=== PATIENT | female | born 1930 | race Caucasian/White ===

== ENCOUNTER 2018-11-24 12:05 | Inpatient (IN) | payer MEDICARE, BC ==
[2018-11-24] MEDS ORDERED: oxyCODONE 5 MG Tab PO PRN (14:43)
--- NOTE | 2018-11-24 14:46 | PCM.HP.2 ---
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 She is admitted to swing bed for rehabilitation. Pain is well controlled on oxycodone,but she complains of some constipation. Taylor also has a history of Hypothyroidism hypertension, depression,and PMR that is stable. She had postoperative anemia but at discharge her hemoglobin 9.7. left hip Pain Score (Numeric/FACES): 7 - Related Data Allergies/Adverse Reactions: Allergies Allergy/AdvReac Type Severity Reaction Status Date / Time morphine Allergy Rash Verified 01/14/16 03:36 Home Medications: Home Meds Lisinopril/Hydrochlorothiazide [Lisinopril-Hctz 20-12.5 mg Tab] 2 tab PO DAILY 12/09/14 [History] Docusate Sodium [Doc-Q-Lace] 100 mg PO DAILY 09/08/15 [History] Folic Acid 1 mg PO DAILY 09/08/15 [History] Sertraline [Zoloft] 25 mg PO DAILY 09/08/15 [History] predniSONE [Prednisone] 5 mg PO DAILY 09/08/15 [History] Acetaminophen [Tylenol Extra Strength] 1,000 mg PO TID 11/24/18 [History] Apixaban [Eliquis] 2.5 mg PO BID 11/24/18 [History] Aspirin [Halfprin] 81 mg PO DAILY 11/24/18 [History] Ferrous Sulfate 325 mg PO DAILY 11/24/18 [History] Sennosides/Docusate Sodium [Senna-S] 2 tab PO BID 11/24/18 [History] oxyCODONE 5 mg PO Q6H PRN 11/24/18 [History] traMADol [Ultram] 50 mg PO TID 11/24/18 [History] Past Medical History HEENT History: Reports: Impaired Vision, Sinusitis Other HEENT History: No vision out of left eye, sees light only, since 20 years ago. Cardiovascular History: Reports: Blood Clots/VTE/DVT, High Cholesterol, Hypertension Other Cardiovascular History: blood clot in right arm Respiratory History: Reports: Other (See Below) Other Respiratory History: Current bronchitis Gastrointestinal History: Reports: Bowel Obstruction, Hemorrhoids [employer] History: Reports: Musculoskeletal History: Reports: Arthritis Other Musculoskeletal History: ARTHRITIS Oncologic (Cancer) History: Reports: Colon - Infectious Disease History Infectious Disease History: Reports: Chicken Pox, Measles, Mumps - Past Surgical History GI Surgical History: Reports: Cholecystectomy, Colon, Small Bowel Social & Family History - Family History Family Medical History: Noncontributory HEENT: Reports: None Other Cardiac Family History: dad had heart problems GI: Reports: Bowel Obstruction OBGYN: Reports: Endocrine/Metabolic: Reports: Diabetes, type II - Caffeine Use Caffeine Use: Reports: None - Living Situation & Occupation Living situation: Reports: , Alone, Other Occupation: Retired H&P Review of Systems - Review of Systems: Review Of Systems: ROS reveals no pertinent complaints other than HPI. Exam - Exam Exam: See Below - Exam General: Alert, Oriented HEENT: PERRLA Neck: Supple Lungs: Clear to Auscultation Cardiovascular: Regular Rate Rectal (Female) Exam: Deferred Extremities: Normal Inspection Skin: Warm, Dry Neurological: Cranial Nerves Intact Neuro Extensive - Motor, Sensory, Reflexes: CN II-XII Intact Psychiatric: Alert, Normal Affect - Problem List (1) H/O total hip arthroplasty SNOMED Code(s): 701204123414, 632501052847 ICD Code: Z96.649 - PRESENCE OF UNSPECIFIED ARTIFICIAL HIP JOINT Status: Acute Current Visit: Yes Qualifiers: Laterality: left Qualified Code(s): Z96.642 - Presence of left artificial hip joint (2) Weakness SNOMED Code(s): 83423397 ICD Code: R53.1 - WEAKNESS Status: Acute Current Visit: Yes (3) MDD (major depressive disorder) SNOMED Code(s): 070778365 ICD Code: F32.9 - MAJOR DEPRESSIVE DISORDER, SINGLE EPISODE, UNSPECIFIED Status: Acute Current Visit: Yes Qualifiers: Major depression recurrence: recurrent (4) Anemia SNOMED Code(s): 906833802 ICD Code: D64.9 - ANEMIA, UNSPECIFIED Status: Acute Current Visit: Yes Qualifiers: Anemia type: unspecified type Qualified Code(s): D64.9 - Anemia, unspecified (5) CKD (chronic kidney disease) SNOMED Code(s): 768157492 ICD Code: N18.9 - CHRONIC KIDNEY DISEASE, UNSPECIFIED Status: Chronic Current Visit: Yes Qualifiers: Chronic kidney disease stage: stage 3 (moderate) Qualified Code(s): N18.3 - Chronic kidney disease, stage 3 (moderate) (6) HTN (hypertension) SNOMED Code(s): 11844561 ICD Code: I10 - ESSENTIAL (PRIMARY) HYPERTENSION Status: Chronic Current Visit: Yes Qualifiers: Hypertension type: essential hypertension Qualified Code(s): I10 - Essential (primary) hypertension (7) PMR (polymyalgia rheumatica) SNOMED Code(s): 28953781 ICD Code: M35.3 - POLYMYALGIA RHEUMATICA Status: Chronic Current Visit: Yes Problem List Initiated/Reviewed/Updated: Yes Orders Last 24hrs: Active Orders 24 hr Category Date Time Status Admission Status [Patient Status] [ADT] Routine ADT 11/24/18 14:15 Active Height and Weight [RC] WEEKLY Care 11/24/18 14:41 Ordered Oxygen Therapy [RC] PRN Care 11/24/18 14:41 Ordered VTE/DVT Education [RC] Per Unit Routine Care 11/24/18 14:41 Ordered Vital Signs [RC] PER UNIT ROUTINE Care 11/24/18 14:41 Ordered Consult to Occupational Therapy [OT Evaluation and Cons 11/24/18 14:40 Active Treatment] [CONS] Routine PT Evaluation and Treatment [CONS] Routine Cons 11/24/18 14:40 Active Regular Diet [DIET] Diet 11/24/18 Breakfast Ordered Acetaminophen [Tylenol Extra Strength] Med 11/24/18 21:00 Ordered 1,000 mg PO TID Apixaban [Eliquis] Med 11/24/18 21:00 Ordered 2.5 mg PO BID Docusate Sodium [Colace] Med 11/25/18 09:00 Ordered 100 mg PO DAILY Docusate Sodium/Sennosides [Senna Plus] Med 11/24/18 21:00 Ordered 2 tab PO BID Ferrous Sulfate Med 11/25/18 09:00 Ordered 325 mg PO DAILY Folic Acid Med 11/25/18 09:00 Ordered 1 mg PO DAILY Hydrochlorothiazide/Lisinopril [Lisinopril/HCTZ 20-12.5 Med 11/25/18 09:00 Ordered MG] 2 tab PO DAILY Sertraline [Zoloft] Med 11/25/18 09:00 Ordered 25 mg PO DAILY oxyCODONE Med 11/24/18 14:43 Ordered 5 mg PO Q6H PRN predniSONE Med 11/25/18 09:00 Ordered 5 mg PO DAILY traMADol [Ultram] Med 11/24/18 21:00 Ordered 50 mg PO TID Resuscitation Status Routine Resus Stat 11/24/18 14:41 Ordered Assessment/Plan Comment:: Admit to swing bed,with routine order set. Try Miralax for constipation. Consult OT/PT. - Mortality Measure Prognosis:: Good
[2018-11-24] MEDS: traMADol 50 MG Tab PO SCH ×2 (15:34→21:28)
[2018-11-24] MEDS: Acetaminophen 500 MG Tab PO SCH ×2 (15:34→21:23)
[2018-11-24] MEDS: Apixaban 5 MG Tab PO SCH (21:22)
[2018-11-25] MEDS: traMADol 50 MG Tab PO SCH ×3 (07:52→22:36)
[2018-11-25] MEDS ORDERED: Polyethylene Glycol 3350 Powder 17 GM Packet PO ONE (08:42)
[2018-11-25] MEDS: Docusate Sodium 100 MG Cap PO SCH (09:55)
[2018-11-25] MEDS: Apixaban 5 MG Tab PO SCH ×2 (09:56→20:22)
[2018-11-25] MEDS: Ferrous Sulfate 325 MG Tab PO SCH (09:57)
[2018-11-25] MEDS: Folic Acid 1 MG Tab PO SCH (09:57)
[2018-11-25] MEDS: predniSONE 5 MG Tab PO SCH (09:59)
[2018-11-25] MEDS: Acetaminophen 500 MG Tab PO SCH ×2 (10:01→18:32)
[2018-11-25] MEDS: Sertraline 25 MG Tab PO SCH (10:02)
[2018-11-25] MEDS: Hydrochlorothiazide/Lisinopril 12.5-20 MG Tab PO SCH (10:14)
[2018-11-26] MEDS: Acetaminophen 500 MG Tab PO SCH ×3 (00:25→18:05)
[2018-11-26] MEDS: traMADol 50 MG Tab PO SCH ×3 (05:49→21:38)
[2018-11-26] MEDS: Docusate Sodium 100 MG Cap PO SCH (08:05)
[2018-11-26] MEDS: Apixaban 5 MG Tab PO SCH ×2 (08:05→20:40)
[2018-11-26] MEDS: Folic Acid 1 MG Tab PO SCH (08:06)
[2018-11-26] MEDS: Ferrous Sulfate 325 MG Tab PO SCH (08:06)
[2018-11-26] MEDS: Hydrochlorothiazide/Lisinopril 12.5-20 MG Tab PO SCH (08:07)
[2018-11-26] MEDS: predniSONE 5 MG Tab PO SCH (08:07)
[2018-11-26] MEDS: Sertraline 25 MG Tab PO SCH (08:08)
[2018-11-26] MEDS ORDERED: Ondansetron 4 MG Tab.DIS PO PRN (13:12)
[2018-11-27] MEDS: Acetaminophen 500 MG Tab PO SCH ×4 (00:06→23:42)
[2018-11-27] MEDS: traMADol 50 MG Tab PO SCH ×3 (06:19→21:04)
[2018-11-27] MEDS: Apixaban 5 MG Tab PO SCH ×2 (09:07→20:50)
[2018-11-27] MEDS: Docusate Sodium 100 MG Cap PO SCH (09:07)
[2018-11-27] MEDS: predniSONE 5 MG Tab PO SCH (09:08)
[2018-11-27] MEDS: Ferrous Sulfate 325 MG Tab PO SCH (09:08)
[2018-11-27] MEDS: Folic Acid 1 MG Tab PO SCH (09:08)
[2018-11-27] MEDS: Sertraline 25 MG Tab PO SCH (09:09)
[2018-11-27] MEDS ORDERED: Polyethylene Glycol 3350 Powder 17 GM Packet PO PRN (09:11)
[2018-11-27] MEDS: Hydrochlorothiazide/Lisinopril 12.5-20 MG Tab PO SCH (09:13)
[2018-11-28] MEDS: traMADol 50 MG Tab PO SCH ×3 (05:56→22:45)
[2018-11-28] MEDS: Docusate Sodium 100 MG Cap PO SCH (08:38)
[2018-11-28] MEDS: Apixaban 5 MG Tab PO SCH ×2 (08:38→20:25)
[2018-11-28] MEDS: Ferrous Sulfate 325 MG Tab PO SCH (08:38)
[2018-11-28] MEDS: Hydrochlorothiazide/Lisinopril 12.5-20 MG Tab PO SCH (08:38)
[2018-11-28] MEDS: Folic Acid 1 MG Tab PO SCH (08:38)
[2018-11-28] MEDS: Sertraline 25 MG Tab PO SCH (08:39)
[2018-11-28] MEDS: predniSONE 5 MG Tab PO SCH (08:39)
[2018-11-28] MEDS: Acetaminophen 500 MG Tab PO SCH ×2 (10:30→18:38)
[2018-11-29] MEDS: Acetaminophen 500 MG Tab PO SCH ×4 (00:06→23:52)
[2018-11-29] MEDS: traMADol 50 MG Tab PO SCH ×3 (05:40→22:00)
[2018-11-29] MEDS: predniSONE 5 MG Tab PO SCH (08:00)
[2018-11-29] MEDS: Docusate Sodium 100 MG Cap PO SCH (08:00)
[2018-11-29] MEDS: Hydrochlorothiazide/Lisinopril 12.5-20 MG Tab PO SCH (08:00)
[2018-11-29] MEDS: Folic Acid 1 MG Tab PO SCH (08:00)
[2018-11-29] MEDS: Sertraline 25 MG Tab PO SCH (08:00)
[2018-11-29] MEDS: Apixaban 5 MG Tab PO SCH ×2 (08:00→21:10)
[2018-11-29] MEDS: Ferrous Sulfate 325 MG Tab PO SCH (08:00)
[2018-11-30] MEDS: traMADol 50 MG Tab PO SCH ×3 (05:43→21:49)
[2018-11-30] MEDS: Hydrochlorothiazide/Lisinopril 12.5-20 MG Tab PO SCH (08:12)
[2018-11-30] MEDS: Sertraline 25 MG Tab PO SCH (08:12)
[2018-11-30] MEDS: predniSONE 5 MG Tab PO SCH (08:12)
[2018-11-30] MEDS: Folic Acid 1 MG Tab PO SCH (08:13)
[2018-11-30] MEDS: Docusate Sodium 100 MG Cap PO SCH (08:13)
[2018-11-30] MEDS: Ferrous Sulfate 325 MG Tab PO SCH (08:13)
[2018-11-30] MEDS: Apixaban 5 MG Tab PO SCH ×2 (08:13→20:25)
[2018-11-30] MEDS: Acetaminophen 500 MG Tab PO SCH ×2 (10:14→18:26)
[2018-11-30] MEDS ORDERED: Menthol/Methyl Salicylate 114 GM Jar TOP PRN (11:24)
[2018-12-01] MEDS: Acetaminophen 500 MG Tab PO SCH ×4 (00:22→23:25)
[2018-12-01] MEDS: traMADol 50 MG Tab PO SCH (05:13)
[2018-12-01] MEDS: Sertraline 25 MG Tab PO SCH (08:47)
[2018-12-01] MEDS: predniSONE 5 MG Tab PO SCH (08:47)
[2018-12-01] MEDS: Hydrochlorothiazide/Lisinopril 12.5-20 MG Tab PO SCH (08:47)
[2018-12-01] MEDS: Docusate Sodium 100 MG Cap PO SCH (08:47)
[2018-12-01] MEDS: Folic Acid 1 MG Tab PO SCH (08:48)
[2018-12-01] MEDS: Apixaban 5 MG Tab PO SCH ×2 (08:48→22:38)
[2018-12-01] MEDS: Ferrous Sulfate 325 MG Tab PO SCH (08:48)
[2018-12-02] MEDS: traMADol 50 MG Tab PO PRN ×4 (00:18→21:25)
[2018-12-02] MEDS: Hydrochlorothiazide/Lisinopril 12.5-20 MG Tab PO SCH (08:08)
[2018-12-02] MEDS: Ferrous Sulfate 325 MG Tab PO SCH (08:08)
[2018-12-02] MEDS: Apixaban 5 MG Tab PO SCH ×2 (08:08→21:17)
[2018-12-02] MEDS: predniSONE 5 MG Tab PO SCH (08:08)
[2018-12-02] MEDS: Folic Acid 1 MG Tab PO SCH (08:08)
[2018-12-02] MEDS: Sertraline 25 MG Tab PO SCH (08:08)
[2018-12-02] MEDS: Docusate Sodium 100 MG Cap PO SCH (08:08)
[2018-12-02] MEDS: Acetaminophen 500 MG Tab PO SCH ×2 (10:13→18:38)
[2018-12-03] MEDS: Acetaminophen 500 MG Tab PO SCH ×3 (01:02→17:00)
[2018-12-03] MEDS: predniSONE 5 MG Tab PO SCH (08:07)
[2018-12-03] MEDS: Apixaban 5 MG Tab PO SCH ×2 (08:07→20:54)
[2018-12-03] MEDS: Sertraline 25 MG Tab PO SCH (08:08)
[2018-12-03] MEDS: Ferrous Sulfate 325 MG Tab PO SCH (08:08)
[2018-12-03] MEDS: Docusate Sodium 100 MG Cap PO SCH (08:08)
[2018-12-03] MEDS: Hydrochlorothiazide/Lisinopril 12.5-20 MG Tab PO SCH (08:08)
[2018-12-03] MEDS: Folic Acid 1 MG Tab PO SCH (08:08)
[2018-12-03] MEDS: traMADol 50 MG Tab PO PRN (08:13)
[2018-12-03] MEDS: Diclofenac Sodium 1% Gel 100 GM Tube TOP SCH ×3 (14:08→20:54)
--- NOTE | 2018-12-03 17:37 | PCM.PN ---
- General Info Date of Service: 12/03/18 Admission Dx/Problem (Free Text): Patient is having more right shoulder pain secondary to using her shoulder more with front wheel walker. States she has babied the shoulder for years as her hip as been the biggest problem. She had AVN of left hip, required left ADRY. She has never had x-ray of the shoulder. Has appt with orthopedics/rheumatology in a few weeks. No cough, shortness of breath, nausea, vomiting. Had bowel movement this morning which is more loose. Was on aggressive bowel regiment in [place]. She take Colace daily at home. Care conference today at 1pm. - Patient Data Vitals - Most Recent: Last Vital Signs Temp 98.1 F 12/03/18 07:45 Pulse 68 12/03/18 07:45 Resp 18 12/03/18 07:45 BP 127/58 L 12/03/18 08:08 Pulse Ox 95 12/03/18 07:45 Weight - Most Recent: 170 lb 3.2 oz I&O - Last 24 Hours: Intake & Output 12/03/18 12/03/18 12/03/18 06:59 14:59 22:59 Intake Total 600 Balance 600 Med Orders - Current: Current Medications Acetaminophen (Tylenol Extra Strength) 1,000 mg PO TID@0000,1000,1800 [facility] Stop: 12/08/18 10:01 Last Admin: 12/03/18 17:00 Dose: 1,000 mg Acetaminophen (Tylenol Extra Strength) 1,000 mg PO TID@0000,1000,1800 PRN PRN Reason: PAIN Apixaban (Eliquis) 2.5 mg PO BID [facility] Stop: 12/26/18 09:01 Last Admin: 12/03/18 08:07 Dose: 2.5 mg Aspirin (Halfprin) 81 mg PO DAILY [facility] Diclofenac Sodium (Voltaren 1% Gel) 2 gm TOP QID [facility] Last Admin: 12/03/18 16:58 Dose: 1 applic Docusate Sodium (Colace) 100 mg PO DAILY [facility] Last Admin: 12/03/18 08:08 Dose: 100 mg Ferrous Sulfate (Ferrous Sulfate) 325 mg PO DAILY [facility] Last Admin: 12/03/18 08:08 Dose: 325 mg Folic Acid (Folic Acid) 1 mg PO DAILY [facility] Last Admin: 12/03/18 08:08 Dose: 1 mg Lisinopril/HCTZ (Lisinopril/Hctz 20-12.5 Mg) 2 tab PO DAILY [facility] Last Admin: 12/03/18 08:08 Dose: 2 tab Methyl Salicylate (Pain Relieving Rub Cream) 0 gm TOP QID PRN PRN Reason: muscle pain left ankle Ondansetron HCl (Zofran Odt) 4 mg PO Q6H PRN PRN Reason: Nausea/Vomiting Last Admin: 11/26/18 15:11 Dose: 4 mg Oxycodone HCl (Oxycodone) 5 mg PO Q6H PRN PRN Reason: MODERATE-SEVERE PAIN Polyethylene Glycol (Miralax) 17 gm PO DAILY PRN PRN Reason: CONSTIPATION Prednisone (Prednisone) 5 mg PO DAILY [facility] Last Admin: 12/03/18 08:07 Dose: 5 mg Senna/Docusate Sodium (Senna Plus) 1 tab PO BID PRN PRN Reason: constipation Sertraline HCl (Zoloft) 25 mg PO DAILY [facility] Last Admin: 12/03/18 08:08 Dose: 25 mg Tramadol HCl (Ultram) 50 mg PO TID PRN PRN Reason: MODERATE-SEVERE PAIN Last Admin: 12/03/18 08:13 Dose: 50 mg Discontinued Medications Acetaminophen (Tylenol Extra Strength) 1,000 mg PO TID [facility] Last Admin: 11/24/18 21:23 Dose: 1,000 mg Polyethylene Glycol (Miralax) 17 gm PO ONETIME ONE Stop: 11/25/18 08:43 Last Admin: 11/25/18 10:14 Dose: 17 gm Senna/Docusate Sodium (Senna Plus) 2 tab PO BID [facility] Last Admin: 11/29/18 08:00 Dose: 2 tab Senna/Docusate Sodium (Senna Plus) 1 tab PO BID [facility] Last Admin: 12/03/18 08:08 Dose: 1 tab Tramadol HCl (Ultram) 50 mg PO TID [facility] Last Admin: 11/24/18 21:28 Dose: 50 mg Tramadol HCl (Ultram) 50 mg PO TID@0600,1400,2200 [facility] Stop: 12/01/18 06:01 Last Admin: 12/01/18 05:13 Dose: 50 mg - Exam General: Alert, Oriented, Cooperative, No Acute Distress Lungs: Clear to Auscultation, Normal Respiratory Effort Cardiovascular: Regular Rate, Regular Rhythm GI/Abdominal Exam: Normal Bowel Sounds, Soft, Non-Tender, No Distention Extremities: Arm Pain, Limited Range of Motion (Neer's: positive, moderate crepitus) - Problem List & Annotations (1) Right shoulder pain SNOMED Code(s): 52678317, 17989868 Code(s): M25.511 - PAIN IN RIGHT SHOULDER Status: Acute Current Visit: Yes (2) H/O total hip arthroplasty SNOMED Code(s): 378664148724, 740141206081 Code(s): Z96.649 - PRESENCE OF UNSPECIFIED ARTIFICIAL HIP JOINT Status: Acute Current Visit: Yes Qualifiers: Laterality: left Qualified Code(s): Z96.642 - Presence of left artificial hip joint Annotation/Comment:: due to avascular necrosis (3) MDD (major depressive disorder) SNOMED Code(s): 398045143 Code(s): F32.9 - MAJOR DEPRESSIVE DISORDER, SINGLE EPISODE, UNSPECIFIED Status: Chronic Current Visit: Yes Qualifiers: Major depression recurrence: recurrent (4) CKD (chronic kidney disease) SNOMED Code(s): 442004837 Code(s): N18.9 - CHRONIC KIDNEY DISEASE, UNSPECIFIED Status: Chronic Current Visit: Yes Qualifiers: Chronic kidney disease stage: stage 3 (moderate) Qualified Code(s): N18.3 - Chronic kidney disease, stage 3 (moderate) (5) HTN (hypertension) SNOMED Code(s): 30376335 Code(s): I10 - ESSENTIAL (PRIMARY) HYPERTENSION Status: Chronic Current Visit: Yes Qualifiers: Hypertension type: essential hypertension Qualified Code(s): I10 - Essential (primary) hypertension (6) PMR (polymyalgia rheumatica) SNOMED Code(s): 61195371 Code(s): M35.3 - POLYMYALGIA RHEUMATICA Status: Chronic Current Visit: Yes (7) Osteoarthritis SNOMED Code(s): 408075801 Code(s): M19.90 - UNSPECIFIED OSTEOARTHRITIS, UNSPECIFIED SITE Status: Chronic Current Visit: No Qualifiers: Osteoarthritis location: multiple joints Osteoarthritis type: primary Qualified Code(s): M15.0 - Primary generalized (osteo)arthritis Annotation/Comment:: OA of neck, hands and hips. She will begin Aleve 220 mg bid w food. 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 Spoke with Dr Mayo, [facility], cannot have shoulder injection until 6 weeks after hip surgery. She will follow up in [place] by that time. Recommended Voltaren gel qid for pain until then. On Prednisone 5 mg daily. Care conference: doing well in regards to PT/OT, did car transfer well. Family will have to get some bed rails and hand rails for toilet prior to her discharge. Daughter is going to take her on a day pass on Saturday at 2pm and if it goes well may be discharged Saturday or Saturday. If Saturday she will go on day pass on Saturday as well.
[2018-12-04] MEDS: Acetaminophen 500 MG Tab PO SCH ×3 (00:40→17:51)
[2018-12-04] MEDS: traMADol 50 MG Tab PO PRN (01:27)
[2018-12-04] MEDS: Docusate Sodium 100 MG Cap PO SCH (09:02)
[2018-12-04] MEDS: Apixaban 5 MG Tab PO SCH ×2 (09:03→20:30)
[2018-12-04] MEDS: predniSONE 5 MG Tab PO SCH (09:03)
[2018-12-04] MEDS: Sertraline 25 MG Tab PO SCH (09:03)
[2018-12-04] MEDS: Hydrochlorothiazide/Lisinopril 12.5-20 MG Tab PO SCH (09:03)
[2018-12-04] MEDS: Ferrous Sulfate 325 MG Tab PO SCH (09:03)
[2018-12-04] MEDS: Folic Acid 1 MG Tab PO SCH (09:03)
[2018-12-04] MEDS: Diclofenac Sodium 1% Gel 100 GM Tube TOP SCH ×4 (09:03→20:31)
[2018-12-04] MEDS ORDERED: Sertraline 25 MG Tab PO ONE (10:00)
[2018-12-04] MEDS: busPIRone 5 MG Tab PO SCH ×2 (10:24→20:31)
[2018-12-05] MEDS: traMADol 50 MG Tab PO PRN (00:46)
[2018-12-05] MEDS: Acetaminophen 500 MG Tab PO SCH ×3 (00:48→17:42)
[2018-12-05] MEDS: busPIRone 5 MG Tab PO SCH ×2 (08:12→20:35)
[2018-12-05] MEDS: Apixaban 5 MG Tab PO SCH ×2 (08:12→20:35)
[2018-12-05] MEDS: Docusate Sodium 100 MG Cap PO SCH (08:12)
[2018-12-05] MEDS: Ferrous Sulfate 325 MG Tab PO SCH (08:13)
[2018-12-05] MEDS: Folic Acid 1 MG Tab PO SCH (08:13)
[2018-12-05] MEDS: Hydrochlorothiazide/Lisinopril 12.5-20 MG Tab PO SCH (08:14)
[2018-12-05] MEDS: predniSONE 5 MG Tab PO SCH (08:15)
[2018-12-05] MEDS: Sertraline 50 MG Tab PO SCH (08:16)
[2018-12-05] MEDS: Diclofenac Sodium 1% Gel 100 GM Tube TOP SCH ×4 (09:36→20:36)
--- NOTE | 2018-12-05 12:57 | PN ---
DATE SEEN: 12/05/2018 SUBJECTIVE: Taylor Augustin is an 88-year-old female, [place] independently [place]. Had aseptic necrosis of her left hip, resulting in surgical management. Doing wonderfully. PT involved. Home visit plan tomorrow. PHYSICAL EXAMINATION: GENERAL: Appears comfortable. Speech was fluent. NECK: Benign. Thyroid small. CHEST: Clear. HEART: Regular. ABDOMEN: Benign. Wound healing well. ASSESSMENT: Left hip total hip arthroplasty. PLAN: Medications on board, treatment appropriate, recheck hemoglobin. /[id number] MANNY/RHONA
[2018-12-06] MEDS: Acetaminophen 500 MG Tab PO SCH ×3 (00:55→17:51)
[2018-12-06] MEDS: Folic Acid 1 MG Tab PO SCH (08:33)
[2018-12-06] MEDS: Hydrochlorothiazide/Lisinopril 12.5-20 MG Tab PO SCH (08:33)
[2018-12-06] MEDS: Ferrous Sulfate 325 MG Tab PO SCH (08:34)
[2018-12-06] MEDS: busPIRone 5 MG Tab PO SCH (08:34)
[2018-12-06] MEDS: predniSONE 5 MG Tab PO SCH (08:34)
[2018-12-06] MEDS: Apixaban 5 MG Tab PO SCH (08:34)
[2018-12-06] MEDS: Sertraline 50 MG Tab PO SCH (08:34)
[2018-12-06] MEDS: Docusate Sodium 100 MG Cap PO SCH (08:34)
[2018-12-06] MEDS: Diclofenac Sodium 1% Gel 100 GM Tube TOP SCH ×3 (08:35→17:50)
[2018-12-06 08:36] VITALS: BP 105/61
[2018-12-06 10:27] VITALS: PULSE 81
--- NOTE | 2018-12-06 12:44 | DISCH ---
DISCHARGE DATE: 12/06/2018 REASON FOR STAY: Left total hip arthroplasty with avascular necrosis. HISTORY OF PRESENT ILLNESS: Taylor Augustin is an 88-year-old admitted to [facility] from [facility]. Presents for postoperative rehab and intervention for left total hip arthroplasty. Please see Dr. Galeana's history and physical. Did well through her stay. PT/OT actively involved. Ambulatory skills, independence, and well being all appropriate. Not to do stairs and do the necessary diagnostic things. LABORATORY STUDIES WHILE HOSPITALIZED: Hemoglobin preadmission 9.7, postoperative went to 11.8; hematocrit 34.0. Random glucose 156. EXAM ON DISCHARGE: VITAL SIGNS: 36.3, 105/61, 16, 94% on room air. GENERAL: Appears comfortable. HEENT: Funduscopic benign. Bright TMs. Clear nasal discharge. Mouth and oropharynx clear. NECK: Benign. Thyroid small. CHEST: Clear in all lung castellanos. No adventitious sounds. HEART: Occasional ectopy. Soft murmur. BREASTS: Deferred. ABDOMEN: Benign. RECTAL: Deferred. SKIN: Surgical wound healing without conflict. EXTREMITIES: Well perfused with venous stasis changes. DISPOSITION: Discharge home. Rehab, left total hip arthroplasty. PLAN: Discharge home with home health, complementary care and well being. Discharge with expectation, routine followup per Orthopedic's plan. ADDENDUM: 30-minute visit, discharge planning and examination. /[id number] MANNY/RHONA
[2018-12-08] MEDS ORDERED: Acetaminophen 500 MG Tab PO PRN (18:00)
[2018-12-27] MEDS ORDERED: Aspirin 81 MG Tab.EC PO SCH (09:00)
== END 2018-12-06 20:15 | disposition home or self-care (01) | DRG 560 ==
LOC: FB.MS 14:15 → FB.OB 11-25 15:26
PROVIDERS: ADMIT Family Medicine; ATTEND Family Medicine
DX: Z47.1 Aftercare following joint replacement surgery (principal); F33.9 Major depressive disorder, recurrent, unspecified; K59.00 Constipation, unspecified; E03.9 Hypothyroidism, unspecified; H54.7 Unspecified visual loss; Z96.642 Presence of left artificial hip joint; E78.00 Pure hypercholesterolemia, unspecified; M19.011 Primary osteoarthritis, right shoulder; M19.042 Primary osteoarthritis, left hand; M19.041 Primary osteoarthritis, right hand; I12.9 Hypertensive chronic kidney disease with stage 1 through stage 4 chronic kidney disease, or unspecified chronic kidney disease; N18.3 Chronic kidney disease, stage 3 (moderate); M16.0 Bilateral primary osteoarthritis of hip; D64.9 Anemia, unspecified; M35.3 Polymyalgia rheumatica; Z85.038 Personal history of other malignant neoplasm of large intestine; Z86.718 Personal history of other venous thrombosis and embolism; Z88.5 Allergy status to narcotic agent; Z79.899 Other long term (current) drug therapy; Z79.52 Long term (current) use of systemic steroids; Z79.82 Long term (current) use of aspirin; Z90.49 Acquired absence of other specified parts of digestive tract
CPT/HCPCS: 36415; 73030-RT; 82962; 85014; 85018; 94150; 97110-GP; 97116-GP; 97161-GP; 97166-GO; 97530-GO; 97535-GO; A9270-GY